=== PATIENT | female | born 1985 | race Two or more races ===

== ENCOUNTER 2018-11-06 13:14 | Emergency (ER) | payer OTHER ==
[2018-11-06] MEDS ORDERED: MECLIZINE HCL 25 MG TABLET PO ONE (13:53)
--- NOTE | 2018-11-06 13:56 | ER Document Report ---
ED Medical Screen (RME) - General Chief Complaint: Dizziness Stated Complaint: DIZZINESS Time Seen by Provider: 11/06/18 13:45 Notes: 33-year-old female presents emergency department complaints of dizziness and generalized weakness that is been intermittent for the last month. Patient states that occasionally she will have a spinning sensation and sometimes she will feel like she is going to pass out. She is having associated nausea and v omiting. Currently she is having the spinning sensation. She denies any ringing in her ears, hearing loss, recent viral illness. Spinning increases with movement. No alleviating factors. She denies any vision changes, speech changes, numbness, tingling. She states that she is having some generalized weakness and fatigue. She went to the urgent care last week and she was diagnosed with anemia. She was started on iron supplements. She states that the weakness is worse with her menstrual cycle. Patient states that she is currently feeling generally weak. I have greeted and performed a rapid initial assessment of this patient. A comprehensive ED assessment and evaluation of the patient, analysis of test results and completion of the medical decision making process will be conducted by additional ED providers. PHYSICAL EXAMINATION: GENERAL: Well-appearing, well-nourished and in no acute distress. HEAD: Atraumatic, normocephalic. EYES: Pupils equal round extraocular movements intact, conjunctiva are normal. ENT: Nares patent NECK: Normal range of motion LUNGS: No respiratory distress Musculoskeletal: Normal range of motion NEUROLOGICAL: Normal speech, normal gait. PSYCH: Normal mood, normal affect. SKIN: Warm, Dry, normal turgor, no rashes or lesions noted. TRAVEL OUTSIDE OF THE [place] IN LAST 30 DAYS: No - Related Data Allergies/Adverse Reactions: No Known Allergies Allergy (Verified 11/06/18 13:39) Past Medical History - Social History Chew tobacco use (# tins/day): No Frequency of alcohol use: None Drug Abuse: None Renal/ Medical History: Denies: Hx Peritoneal Dialysis Past Surgical History: Reports: Hx Section Physical Exam - Vital signs Vitals: Temp Pulse Resp BP Pulse Ox 98.7 F 81 18 145/82 H 100 11/06/18 13:26 11/06/18 13:26 11/06/18 13:26 11/06/18 13:26 11/06/18 13:26 Course - Vital Signs Vital signs: Temp Pulse Resp BP Pulse Ox 98.7 F 81 18 145/82 H 100 11/06/18 13:26 11/06/18 13:26 11/06/18 13:26 11/06/18 13:26 11/06/18 13:26
[2018-11-06 14:12] LABS: APPEARANCE,URINE SLIGHTLY-CLOUDY; BILIRUBIN,URINE NEGATIVE (NEGATIVE); COLOR,URINE STRAW; GLUCOSE, URINE NEGATIVE (NEGATIVE); KETONES,URINE NEGATIVE (NEGATIVE); LEUKOCYTE ESTERASE,URINE TRACE (NEGATIVE); NITRITE,URINE NEGATIVE (NEGATIVE); PROTEIN,URINE NEGATIVE (NEGATIVE); URINE SPECIFIC GRAVITY 1.005; UROBILINOGEN,URINE NEGATIVE mg/dL (<2.0)
[2018-11-06 14:19] LABS: ABSOLUTE EOSINOPHILS # (AUTO) 0.1 10^3/uL (0.0-0.6); ABSOLUTE LYMPHOCYTES (AUTO) 3.4 10^3/uL (0.5-4.7); ABSOLUTE MONOCYTES (AUTO) 0.6 10^3/uL (0.1-1.4); BASOPHILS % (AUTO) 0.4 % (0-2); HEMOGLOBIN 12.1 g/dL (12.0-15.5); LYMPHOCYTES % (AUTO) 28.2 % (13-45); MEAN CORPUSCULAR HEMOGLOBIN 25.3 pg (27.0-33.4); MEAN CORPUSCULAR HGB CONC 32.7 g/dL (32.0-36.0); MEAN CORPUSCULAR VOLUME 77 fl (80-97); MONOCYTES % (AUTO) 4.7 % (3-13); PLATELET COUNT 326 10^3/uL (150-450); RED BLOOD COUNT 4.78 10^6/uL (3.72-5.28); SEGMENTED NEUTROPHILS % (AUTO) 65.7 % (42-78); TOTAL CELLS COUNTED % (AUTO) 100 %; WHITE BLOOD COUNT 12.1 10^3/uL (4.0-10.5)
[2018-11-06 14:39] LABS: ALANINE AMINOTRANSFERASE 23 U/L (9-52); ALBUMIN 5.1 g/dL (3.5-5.0); ALKALINE PHOSPHATASE 67 U/L (38-126); ANION GAP 13 (5-19); ASPARTATE AMINO TRANSFERASE 31 U/L (14-36); BILIRUBIN,DIRECT 0.2 mg/dL (0.0-0.4); BILIRUBIN,TOTAL 0.3 mg/dL (0.2-1.3); BLOOD UREA NITROGEN 13 mg/dL (7-20); CALCIUM 9.6 mg/dL (8.4-10.2); CARBON DIOXIDE 22 mmol/L (22-30); CHLORIDE 107 mmol/L (98-107); GLUCOSE 93 mg/dL (75-110); POTASSIUM 3.7 mmol/L (3.6-5.0); SODIUM 142.4 mmol/L (137-145); TOTAL PROTEIN 9.1 g/dL (6.3-8.2)
[2018-11-06 15:45] VITALS: BP 147/93
--- NOTE | 2018-11-06 20:17 | EKG REPORT ---
SEVERITY:- NORMAL ECG - SINUS RHYTHM : Confirmed by: Kelly Westbrook 06-Nov-2018 20:16:04
--- NOTE | 2018-11-24 09:09 | ER Document Report ---
Entered by NICHOLE STOKES SCRIBE 11/06/18 1518 Acting as scribe for:LATHA MORGAN DO ED Dizziness/Weakness - General Chief Complaint: Dizziness Stated Complaint: DIZZINESS Time Seen by Provider: 11/06/18 13:45 Primary Care Provider: MAHAD PICKENS MD [ACTIVE STAFF] - Follow up as needed Mode of Arrival: Ambulatory Information source: Patient Notes: Patient is a 33-year-old female presenting to the emergency department complaining of dizziness and general malaise. Patient states that the symptoms have been intermittent for a little over a month. She states there is no exacerbating or relieving factors. She describes the dizziness as "the room spinning". She denies any syncopal episodes, blurry vision, nausea, vomiting, urine frequency, dysuria, chest pain, or headache. Patient reports recently being told that she was a little anemic and was given iron pills. TRAVEL OUTSIDE OF THE [place] IN LAST 30 DAYS: No - Related Data Allergies/Adverse Reactions: No Known Allergies Allergy (Verified 11/06/18 13:39) Past Medical History - General Information source: Patient - Social History Smoking Status: Never Smoker Chew tobacco use (# tins/day): No Frequency of alcohol use: None Drug Abuse: None Family History: Reviewed & Not Pertinent Patient has suicidal ideation: No Patient has homicidal ideation: No Past Surgical History: Reports: Hx Section Review of Systems - Review of Systems Constitutional: See HPI, Weakness EENT: No symptoms reported Cardiovascular: See HPI, Dizziness Respiratory: No symptoms reported Gastrointestinal: No symptoms reported Genitourinary: No symptoms reported Female Genitourinary: No symptoms reported Musculoskeletal: No symptoms reported Skin: No symptoms reported Hematologic/Lymphatic: No symptoms reported Neurological/Psychological: No symptoms reported -: Yes All other systems reviewed and negative Physical Exam - Vital signs Vitals: Temp Pulse Resp BP Pulse Ox 98.7 F 81 18 145/82 H 100 11/06/18 13:26 11/06/18 13:26 11/06/18 13:26 11/06/18 13:26 11/06/18 13:26 - Notes Notes: GENERAL: Alert, interacts well. No acute distress. HEAD: Normocephalic, atraumatic. EYES: Pupils equal, round, and reactive to light. Extraocular movements intact. ENT: Oral mucosa moist, tongue midline. Nares patent, no nasal septal hematoma, TM's intacts. NECK: Full range of motion. Supple. Trachea midline. LUNGS: Clear to auscultation bilaterally, no wheezes, rales, or rhonchi. No respiratory distress. HEART: Regular rate and rhythm. No murmurs, gallops, or rubs. ABDOMEN: Soft, non-tender. Non-distended. Bowel sounds present in all 4 quadrants. EXTREMITIES: Moves all 4 extremities spontaneously. No edema, radial and dorsalis pedis pulses 2/4 bilaterally. No cyanosis. NEUROLOGICAL: Alert and oriented x3. Normal speech. Normal pantograph watcher strength. Heel to toe, heel walking and toe walking testing intact. Heel to vargas testing intact. Finger to nose testing intact. Eastern-Hallpike testing is normal. 5/5 muscle strength bilaterally. Biceps and patellar DTRs 2+ bilaterally. PSYCH: Normal affect, normal mood. SKIN: Warm, dry, normal turgor. No rashes or lesions noted. Course - Re-evaluation Re-evalutation: 11/06/18 15:21 CBC shows slight leukocytosis of 12.1, no anemia hemoglobin is 12.1 as well, platelets normal, CMP grossly unremarkable, total protein and albumin are both slightly high, no signs of dehydration, urinalysis is actually quite well hydrated with specific gravity 1.005, large blood and trace leukocyte esterase but 2 squamous epithelial cells 11 RBCs and 1+ bacteria lean towards contamination rather than stone or infection. Patient also has no signs of infection. Patient agrees with not treating this. HCG is negative. EKG is nonischemic, does not show any concerning delays, does not show any ectopy. Neurologic exam is completely normal, nonfocal, no evidence of cerebellar infarction. No indication for brain imaging at this time. Discussed with patient that I do not have a cause for her dizziness at this time. Recommended that her next step be following up with cardiology as an outpatient for a Holter monitor. Discharged to home. - Vital Signs Vital signs: Temp Pulse Resp BP Pulse Ox 98.1 F 70 16 147/93 H 100 11/06/18 15:44 11/06/18 15:44 11/06/18 15:44 11/06/18 15:44 11/06/18 15:44 - Laboratory Result Diagrams: 11/06/18 14:10 11/06/18 14:10 Laboratory results interpreted by me: 11/06/18 11/06/18 11/06/18 14:00 14:10 14:10 WBC 12.1 H MCV 77 L MCH 25.3 L RDW 19.0 H Total Protein 9.1 H Albumin 5.1 H Urine Blood LARGE H Ur Leukocyte Esterase TRACE H - EKG Interpretation by Me Additional EKG results interpreted by me: 11/06/18 15:21 EKG shows sinus rhythm at a rate of 67, axis, normal intervals, no ST segment elevations or depressions, no T wave inversions per my interpretation. Discharge - Discharge Clinical Impression: Dizziness Condition: Stable Disposition: HOME, SELF-CARE Additional Instructions: Today we did not find any signs of anemia, liver or kidney dysfunction or dehydration. There is no evidence of problems with your heart. I was unable to reproduce her dizziness. You may continue taking the iron supplements if you like however I did not see any reason on your blood work to continue taking the iron supplements. Taking iron can cause nausea, vomiting, black stool and constipation. I would recommend stopping the iron. Your EKG was normal. I recommend following up with a brake operator heavy duty as an outpatient. They may wish to start a Holter monitor which is a heart monitor that keeps an eye on your heart rhythm for 24-48 hours. If the meclizine pill we gave you today makes you feel better within the next hour please consider taking the meclizine that I have prescribed as an outpatient. Otherwise do not take the meclizine. Please return to the emergency department should you feel like you are going to pass out, should you develop chest pain, focal weakness or any new or concerning symptoms during these episodes. Prescriptions: RX: Meclizine HCl [Antivert 25 mg Tablet] 25 mg PO Q6HP PRN #20 tablet PRN Reason: Referrals: MAHAD PICKENS MD [ACTIVE STAFF] - Follow up as needed Scribe Attestation: 11/24/18 17:15 I personally performed the services described in the documentation, reviewed and edited the documentation which was dictated to the scribe in my presence, and it accurately records my words and actions. I personally performed the services described in the documentation, reviewed and edited the documentation which was dictated to the scribe in my presence, and it accurately records my words and actions.
== END 2018-11-06 15:45 | disposition home or self-care (01) ==
LOC: ER 13:14
DX: R42 Dizziness and giddiness (principal); R53.1 Weakness
CPT/HCPCS: 36415; 80053; 81001; 81025; 85025; 93005; 93010; 99284